=== PATIENT | male | born 1995 | race African-American/Black ===

== ENCOUNTER 2019-07-06 16:03 | Emergency (ER) | payer OTHER ==
[~2019-07-06] VITALS: Ht 175.3 cm; Wt 72.7 kg
[2019-07-06 16:08] VITALS: BP 158/86; TEMP 98.1
[2019-07-06 17:48] LABS: COLLECTION METHOD CLEAN CATCH
[2019-07-06 18:18] VITALS: PULSE 87
[2019-07-06 18:43] LABS: MUCOUS Present /lpf; PH 6 (5-8); SQUAMOUS EPITHELIAL 0-2 /hpf; URINE APPEARANCE Clear; URINE BACTERIA None Seen /hpf; URINE BILIRUBIN Negative (NEGATIVE); URINE BLOOD Negative (NEGATIVE); URINE COLOR Yellow; URINE GLUCOSE Negative (NEGATIVE); URINE KETONE Negative (NEGATIVE); URINE LEUKOCYTE ESTERASE Trace (NEGATIVE); URINE NITRATE Negative (NEGATIVE); URINE PROTEIN(semi-quant) Negative (NEGATIVE); URINE UROBILINOGEN Negative (NEGATIVE)
== END 2019-07-06 18:21 | disposition home or self-care (01) ==
LOC: COL.ER 16:03
PROVIDERS: Nurse Practitioner
DX: A56.01 Chlamydial cystitis and urethritis (principal); Z98.890 Other specified postprocedural states
CPT/HCPCS: J0696

== ENCOUNTER 2019-07-14 16:09 | Emergency (ER) | payer OTHER ==
[~2019-07-14] VITALS: Ht 175.3 cm; Wt 72.7 kg
[2019-07-14 16:14] VITALS: BP 142/82; TEMP 98.7
[2019-07-14 16:40] LABS: COLLECTION METHOD CLEAN CATCH
[2019-07-14 16:57] LABS: AMORPHOUS CRYSTAL Present /uL; MUCOUS Present /lpf; PH 7 (5-8); SQUAMOUS EPITHELIAL None Seen /hpf; URINE APPEARANCE Cloudy; URINE BACTERIA Rare /hpf; URINE BILIRUBIN Negative (NEGATIVE); URINE BLOOD Negative (NEGATIVE); URINE COLOR Yellow; URINE GLUCOSE Negative (NEGATIVE); URINE KETONE Negative (NEGATIVE); URINE LEUKOCYTE ESTERASE Negative (NEGATIVE); URINE NITRATE Negative (NEGATIVE); URINE PROTEIN(semi-quant) Negative (NEGATIVE); URINE RBC 0-2 /hpf; URINE UROBILINOGEN Negative (NEGATIVE)
[2019-07-14 17:05] VITALS: PULSE 80
== END 2019-07-14 17:05 | disposition home or self-care (01) ==
LOC: COL.ER 16:09
PROVIDERS: Emergency Medicine
DX: Z20.2 Contact with and (suspected) exposure to infections with a predominantly sexual mode of transmission (principal)
CPT/HCPCS: J0696

== ENCOUNTER 2019-08-12 18:18 | Emergency (ER) | payer OTHER ==
[~2019-08-12] VITALS: Ht 175.3 cm; Wt 72.7 kg
[2019-08-12 18:22] VITALS: BP 156/95; TEMP 97.9
[2019-08-12] MEDS ORDERED: DOXYCYCLINE 10100 MG PO (18:45)
[2019-08-12] MEDS ORDERED: FLAGYL500 MG PO ×2 (18:53→18:54)
[2019-08-12 19:28] VITALS: PULSE 80
== END 2019-08-12 19:23 | disposition home or self-care (01) ==
LOC: COL.ER 18:18
DX: A56.01 Chlamydial cystitis and urethritis (principal)
CPT/HCPCS: J0696